=== PATIENT | female | born 1950 | race Caucasian/White ===

== ENCOUNTER 2017-01-15 10:00 | Outpatient (CLI) | payer MEDICARE, BC | END 2017-01-15 23:59 | disposition home or self-care (01) | LOC: D.MAMMO 10:00 | DX: Z12.31 Encounter for screening mammogram for malignant neoplasm of breast (principal) ==

== ENCOUNTER → 2019-10-03 08:11 | Outpatient (CLI) | payer MEDICARE, BC | END | disposition home or self-care (01) | LOC: D.US 08:11 → D.CT 09:00 → D.US 10:00 | PROVIDERS: ATTEND Nurse Practitioner Family | DX: D37.030 Neoplasm of uncertain behavior of the parotid salivary glands (principal); R91.1 Solitary pulmonary nodule ==

== ENCOUNTER 2019-11-28 11:32 | Outpatient (CLI) | payer MEDICARE, BC ==
[~2019-11-28] VITALS: Ht 170.2 cm; Wt 98.6 kg
[2019-11-28 12:10] VITALS: Ht 170.2 cm; Wt 98.6 kg
== END 2019-11-28 12:31 | disposition home or self-care (01) ==
LOC: D.OPS 11:32
PROVIDERS: ATTEND Nurse Practitioner Family
DX: M81.0 Age-related osteoporosis without current pathological fracture (principal)

== ENCOUNTER → 2020-05-29 11:20 | Outpatient (CLI) | payer MEDICARE, BC ==
[~2020-05-29] VITALS: Ht 170.2 cm; Wt 96.4 kg
[2020-05-29 11:51] VITALS: Ht 170.2 cm; Wt 96.4 kg
== END | disposition home or self-care (01) ==
LOC: D.OPS 11:20
PROVIDERS: ATTEND Family Medicine
DX: M81.0 Age-related osteoporosis without current pathological fracture (principal)